=== PATIENT | male | born 2000 | race Caucasian/White ===

== ENCOUNTER 2021-01-10 09:22 | Outpatient (REF) | payer MEDICAID, SELFPAY | END 2021-01-10 09:23 | disposition home or self-care (01) | LOC: HO.LAB 09:22 | PROVIDERS: Visit Provider Internal Medicine | DX: Z20.822 Contact with and (suspected) exposure to COVID-19 (principal) | CPT/HCPCS: 36415; C9803; U0003; U0005 ==

== ENCOUNTER 2025-04-13 16:30 | Outpatient (REF) | payer MEDICAID, SELFPAY ==
--- OUTSIDE RECORDS SUMMARY | 2025-04-13 16:32 | XMS_ITS | Encounter Summary ---
Demographics Address [address] [place] [address] Work Phone Mobile Phone Preferred Language es Marital Status Single Church Affiliation Unknown Race Other Race Ethnic Group Unknown Author Organization [email or web address] Address [address] [facility] 7t [place] [address] Care Team Providers Care Cargo Service Agent Name Role Phone Kemi Hayden MD Primary Care Provider [phone] Reason for Visit * Reason Onset Date Comments CHART PREP 04/12/2025 Encounter Details Date Type Department Care Team (Late st Contact Info) Description 04/12/2025 Telephone [facility]IC[facility] [address] [place], [place] [phone] Kemi Hayden MD [address] [place], [place] [phone] CHART PREP Social History Tobacco Use Types Packs/Day Years Used Date Smoking Tobacco: Some Days Cigarettes Smokeless Tobacco: Never Depression Answer Date Recorded Patient Health Questionnaire-9 Score 0 04/13/2025 Patient Health Questionnaire-9 Score 0 04/13/2025 Last PHQ-9: Questionnaire Data Not on file 0 04/13/2025 Housing Stability Answer Date Recorded What is your housing situation today? I have letitia lopez 04/13/[address] you li ve. Do you have problems with any of the following? None of the above 04/13/2025 Food Insecurity Answer Date Recorded Within the past 12 months, y ou worried that your food would run out before you got money to buy more: Never True 04/13/2025 Within the past 12 months,th e food you bought just didn't last and you didn't have enough money to get more: Never True Transportation Answer Date Recorded In the past 12 months, has l ack of transportation kept you from medical appts, meetings, work or from getting things needed for daily living? No 04/13/2025 Utilities Answer Date Recorded In the past 12 months, has t he electric, gas, oil or water company threatened to shut off services in your home? No 04/13/2025 Depression Answer Date Recorded Patient Health Questionnaire-2 Score 0 04/13/2025 Internet Access Answer Date Recorded Internet Access Q1 Yes 04/13/2025 Internet Access Q2 Not on file 04/13/2025 Sex and Gender Information Value Date Recorded Sex Assigned at Male 09/23/2022 10:21 AM EDT Legal Sex Male 10:21 AM EDT Gender Identity Male 09/23/2022 10:21 AM EDT Sexual Orientation Straight 09/23/2022 10 :21 AM EDT documented as of this encounter Miscellaneous Notes * Telephone Encounter - Peggy Richardson MA - 04/12/2025 11:32 AM EDT Chart Prep Labs: not applicable Images: not applicable Referrals: not applicable Vaccines due: Covid and PCV20 Screenings: not applicable Overdue care gaps: SBIRT, SDOH, PHQ-9, YVONNE-7, Oral health screening, and Disability screen documented in this encounter Plan of Treatment Upcoming Encounters Date Type Department Care Team (Late st Contact Info) Description 04/20/2025 3:00 PM EDT Clinical Support [address] [address] 04/25/2025 2:00 PM EDT Office Visit [facility] [address] [place] [phone] Kemi Hayden MD [address] [place] [address] documented as of this encounter Visit Diagnoses Not on filedocumented in this encounter Care Teams Cargo Service Agent Relationship Specialty Start Date End Date Kemi Hayden MD [address] [place] [phone] PCP - General Family Medicine 05/21/22 documented as of this encounter
--- OUTSIDE RECORDS SUMMARY | 2025-04-13 16:32 | XMS_ITS | Encounter Summary ---
Author Organization [facility] Address [address] [facility] 7t [place] [address] Care Team Providers Care Fiction And Nonfiction Prose Writer Name Role Phone Kemi Hayden MD Primary Care Provider [phone] Encounter Details Date Type Department Care Team (Latest Contact Info) Description 08/29/2022 Abstract [facility] CONVERSIONS Dental, Provider, DDS Social History Tobacco Use Types Packs/Day Years Used Date Smoking Tobacco: Never Assessed Sex and Gender Information Value Date Recorded Sex Assigned at Male 09/23/2022 10:21 AM EDT Legal Sex Male 10:21 AM EDT Gender Identity Male 09/23/2022 10:21 AM EDT Sexual Orientation Straight 09/23/2022 10 :21 AM EDT documented as of this encounter Plan of Treatment Upcoming Encounters Date Type Department Care Team (Late st Contact Info) Description 04/20/2025 3:00 PM EDT Clinical Support [facility] MEDICINE [address] [place] [address] 04/25/2025 2:00 PM EDT Office Visit [facility] MEDICINE [address] [place] [address] Kemi Hayden MD [address] [place] [address] documented as of this encounter Visit Diagnoses Not on filedocumented in this encounter Care Teams Fiction And Nonfiction Prose Writer Relationship Specialty Start Date End Date Kemi Hayden MD [address] [place] [phone] PCP - General Family Medicine 05/21/22 documented as of this encounter
--- OUTSIDE RECORDS SUMMARY | 2025-04-13 16:32 | XMS_ITS | Encounter Summary ---
Author Organization [employer] Address [address] [facility] [address] 7t [place] [address] Care Team Providers Care Public Relations Coordinator Name Role Phone Kemi Hayden MD Primary Care Provider [phone] Encounter Details Date Type Department Care Team (Latest Contact Info) Description 04/13/2025 Travel Social History Tobacco Use Types Packs/Day Years Used Date Smoking Tobacco: Some Days Cigarettes Smokeless Tobacco: Never Depression Answer Date Recorded Patient Health Questionnaire-9 Score 0 04/13/2025 Patient Health Questionnaire-9 Score 0 04/13/2025 Last PHQ-9: Questionnaire Data Not on file 0 04/13/2025 Housing Stability Answer Date Recorded What is your housing situation today? I have letitia jessica 04/13/[address] you li [...] AM EDT documented as of this encounter Functional Status * Over the past 2 weeks, how often have you been bothered by any of the following problems? Question Answer Date of Assessment Author Patient Health Questionnaire -2 Score 0 04/13/2025 11:15 AM EDT Kiley Rene MA * Little interest or pleasure in doing things Answer Date of Assessment Author Not at all 04/13/2025 11:15 AM TIFFANIET Kiley Rene MA * Feeling down, depressed, or hopeless Answer Date of Assessment Author Not at all 04/13/2025 11:15 AM TIFFANIET Kiley Rene MA * Trouble falling or staying asleep, or sleeping too much Answer Date of Assessment Author Not at all 04/13/2025 11:15 AM Kiley Sherwood MA * Feeling tired or having little energy Answer Date of Assessment Author Not at all 04/13/2025 11:15 AM TIFFANIET Kiley Rene MA * Poor appetite or overeating Answer Date of Assessment Author Not at all 04/13/2025 11:15 AM Kiley Sherwood MA * Feeling bad about yourself - or that you are a failure or have let yourself or your family down Answer Date of Assessment Author Not at all 04/13/2025 11:15 AM Kiley Sherwood MA * Trouble concentrating on things, such as reading the newspaper or watching television Answer Date of Assessment Author Not at all 04/13/2025 11:15 AM Kiley Sherwood MA * Moving or speaking so slowly that other people could have noticed? Or the opposite - being so fidgety or restless that you have been moving around a lot more than usual. Answer Date of Assessment Author Not at all 04/13/2025 11:15 AM Kiley Sherwood MA * Thoughts that you would be better off or hurting yourself in some way Answer Date of Assessment Author Not at all 04/13/2025 11:15 AM EDT Kiley Rene MA * Patient Health Questionnaire-9 Score Answer Date of Assessment Author 0 04/13/2025 11:15 AM EDT Kiley Rene MA * Over the last 2 weeks, how often have you been bothered by any of the following problems? Question Answer Date of Assessment Author Feeling nervous, anxious, or on edge 2 04/13/2025 11:15 AM EDT Kiley Rene MA Not being able to stop or co ntrol worrying 1 04/13/2025 11:15 AM EDT Kiley Rene MA Worrying too much about diff erent things 0 04/13/2025 11:15 AM TIFFANIET Kiley Rene MA Trouble relaxing 1 04/13/2025 11:15 AM EDT Kiley Rene MA Being so restless that it is hard to sit still 0 04/13/2025 11:15 AM TIFFANIET Kiley Rene MA Becoming easily annoyed or irritable 3 04/13/2025 11:15 AM TIFFANIET Kiley Rene MA Feeling afraid as if somethi ng awful might happen 0 04/13/2025 11:15 AM Kiley Sherwood MA YVONNE-7 Total Score 7 04/13/2025 11:15 AM Kiley Sherwood MA documented as of this encounter Plan of Treatment Upcoming Encounters Date Type Department Care Team (Late st Contact Info) Description 04/20/2025 3:00 PM EDT Clinical Support [facility] MEDICINE [address] [place] [phone] 04/25/2025 2:00 PM EDT Office Visit [facility] MEDICINE [address] [place] [phone] Kemi Hayden MD [address] [place] [address] documented as of this encounter Visit Diagnoses Not on filedocumented in this encounter Additional Health Concerns Assessment Noted Time PHQ-9 Depression Total Score: 0 04/13/20 25 11:15 AM EDT documented as of this encounter Care Teams Public Relations Coordinator Relationship Specialty Start Date End Date Kemi Hayden MD [address] [place] [address] PCP - General Family Medicine 05/21/22 documented as of this encounter
--- OUTSIDE RECORDS SUMMARY | 2025-04-13 16:32 | XMS_ITS | Clinical Summary ---
Author Organization [employer] Address [address] [facility] 7t [place] [address] Care Team Providers Care Supervisor Final Name Role Phone Kemi Hayden MD Primary Care Provider Allergies No known active allergies Medications loratadine (Claritin) 10 MG tablet Take 1 tablet (10 mg) by mouth Once per day. 30 tablet 3 5 04/13/20 26 Active Alcohol Swabs (Alcohol Pads) 70 % padsIndications :Other specified diabetes mellitus with hyperglycemia, unspecified whether continuous churn buttermaker insulin use (CMS/HCC) Use 4 times a day 100 each 5 Active Continuous Glucose Content Producer (FreeStyle Nakia 2 [place]) deviceIndicatio ns:Other specified diabetes mellitus with hyperglycemia, unspecified whether continuous churn buttermaker insulin use (CMS/HCC) Use 4 times a day 1 each 5 Active Continuous Glucose Sensor (FreeStyle Nakia 2 Sensor) miscIndications :Other specified diabetes mellitus with hyperglycemia, unspecified whether halfway insulin use (CMS/HCC) Use 4 times a day . Replace sensor every 14 days. 2 each 5 Active glucose blood (FREESTYLE LITE) test stripIndication s:Other specified diabetes mellitus with hyperglycemia, unspecified whether continuous churn buttermaker insulin use (CMS/HCC) Use 4 times a day 60 each 5 Active glucose blood (FreeStyle Precision Victor Manuel Test) test stripIndication s:Other specified diabetes mellitus with hyperglycemia, unspecified whether continuous churn buttermaker insulin use (CMS/HCC) Use 4 times a day 100 each 12 5 Active Blood Glucose Monitoring Suppl (FreeStyle Regina Lite) w/Device kitIndications: Other specified diabetes mellitus with hyperglycemia, unspecified whether continuous churn buttermaker insulin use (CMS/HCC) Use 4 times a day 1 kit 5 Active FreeStyle lancetsIndicati ons:Other specified diabetes mellitus with hyperglycemia, unspecified whether continuous churn buttermaker insulin use (CMS/HCC) 1 each by Other route 4 times daily. Use bid, dx type 2 diabetes 60 each 2 5 Active insulin glargine (Lantus SoloStar) 100 UNIT/ML pen Inject 10 Units under the skin at bedtime. 3 mL 2 5 04/13/20 26 Active Insulin Pen Needle (pen needle 04/08 ) 31G X 8 mm [facility] Use as instructed 100 each 12 5 04/13/20 26 Active insulin lispro (HumaLOG) 100 UNIT/ML injection Inject 5 Units under the skin with breakfast, with lunch, and with evening meal. 1 each 2 5 Active amoxicillin (Amoxil) 500 MG capsule Take 1 tab po bid for 10 days 20 capsule 3 04/13/20 25 Discontin ued(Other ) insulin lispro (HumaLOG) 100 UNIT/ML injectionIndica tions:Other specified diabetes mellitus with hyperglycemia, unspecified whether halfway insulin use (CMS/HCC) Inject 5 Units under the skin with breakfast, with lunch, and with evening meal. 1 each 2 5 04/13/20 25 Discontin ued(Other ) insulin glargine (Lantus) 100 UNIT/ML injectionIndica tions:Other specified diabetes mellitus with hyperglycemia, unspecified whether continuous churn buttermaker insulin use (CMS/HCC) Inject 10 Units under the skin at bedtime. 10 mL 2 5 04/13/20 25 Discontin ued(Other ) Hospital, Clinic, or Other Facility Administered Medication Ordered Dose Route Frequency Start Date End Date Status Insulin Lispro solution 7 UnitsIndications:Other specified diabetes mellitus with hyperglycemia, unspecified whether halfway insulin use (CMS/HCC) 7 Units IJ Once 04/13/2025 5 Ended Active Problems No known active problems Encounters Date Type Department Care Team Description 04/13/2025 11:15 AM EDT Office Visit [address] [phone] Sherly Boyer MD Increased urinary frequency (Primary Dx); Foamy urine; Other specified diabetes mellitus with hyperglycemia, unspecified whether continuous churn buttermaker insulin use (CMS/HCC); Newly diagnosed type 1 diabetes mellitus (CMS/HCC); Diabetes mellitus, new onset ([facility]/HCC) 04/13/2025 Travel 04/12/2025 Telephone [facility] MEDICINE [address] [place], [place] [phone] Kemi Hayden MD CHART PREP 04/11/2025 Telephone [facility] MEDICINE [address] [place], [place] [phone] Kemi Hayden MD Nurse Triage 02/04/2025 Population Health Risk Score [facility] () Department [address] [place] [place] [phone] Provider, Population Health Generic from Last 3 Months Social History Tobacco Use Types Packs/Day Years Used Date Smoking Tobacco: Some Days Cigarettes Smokeless Tobacco: Never Tobacco Cessation:Ready to Q uit: Not Asked; Counseling Given: Not Answered Depression Answer Date Recorded Patient Health Questionnaire-9 [...] Orientation Straight 09/23/2022 10 :21 AM EDT Last Filed Vital Signs Vital Sign Reading Time Taken Comments Blood Pressure 117/73 04/13/2025 11:12 AM EDT Pulse 68 04/13/2025 11:12 AM EDT Temperature 35.8 ??C (96.4 ??F) 04/13/2025 11:12 AM E DT Respiratory Rate 20 04/13/2025 11:12 AM EDT Oxygen Saturation 97% 04/13/2025 11:12 AM EDT Inhaled Oxygen Concentration - - Weight 70.4 kg (155 lb 3.2 oz) 04/13/2025 11:12 AM EDT Height 172.7 cm (5' 8 ) 04/13/2025 11:12 AM EDT Body Mass Index 23.6 04/13/2025 11:12 AM EDT Plan of Treatment Upcoming Encounters Date Type Department Care Team (Late st Contact Info) Description 04/20/2025 3:00 PM EDT Clinical Support [facility] MEDICINE [address] [place] [phone] 04/25/2025 2:00 PM EDT Office Visit [facility] MEDICINE [address] [place] [phone] Kemi Hayden MD [address] [place] [phone] Health Maintenance Due Date Last Done Comments HIV Screening 1999 Lipid Panel 1999 Diabetes: Foot Exam 2009 Eye Exam 2009 Alcohol/Substance Use Screening 2011 Family Planning (PISQ) 2014 Hepatitis C Screening 2017 Diabetes: Urine Protein Screening 2018 Pneumococcal Vaccine: Pediatrics (0 to 5 Years) and At-Risk Patients (6 to 49) Years) (1 of 2 - PCV) 2018 DTaP/Tdap/Td Vaccines (7 - Td or Tdap) 03/25/2021 03/25/2011, 06/14/2004, 02/08/2003, Additional history exists COVID-19 Vaccine ( season) 2024 05/08/2022, 07/10/2021, 06/19/2021 Influenza Vaccine (#1) 2024 , 08/24/2018, 08/25/2017, Additional history exists Diabetes: Hemoglobin A1C 07/14/2025 04/13/2025 Depression Screening 04/13/2026 04/13/2025, 04/13/20 25 Disability Screening 04/13/2026 04/13/2025 SDOH Screening 04/13/2026 04/13/2025 Tobacco Screening 04/13/2026 04/13/2025 Zoster Vaccines (1 of 2) 2049 RSV Patients and Patients Aged 60 years or older (1 - 1-dose 75+ series) 2074 Hepatitis B Vaccines Completed 06/24/2000, 04/29/2000, 02/28/2000 HIB Vaccines Completed 06/04/2001, 0811/1999, 04/29/2000, Additional history exists IPV Vaccines Completed 06/14/2004, 05/24, 06/24/2000, Additional history exists HPV Vaccines Completed 07/27/2015, 06/24, 04/23/2013 Hepatitis A Vaccines Completed 08/23/2016, 07/27/20 15 Meningococcal Vaccine Completed 08/23/2016, 011 Meningococcal B Vaccine Aged Out No l onger eligible based on patient's age to complete this topic RSV under 20 months Aged Out No longe r eligible based on patient's age to complete this topic Rotavirus Vaccines Aged Out No longer eligible based on patient's age to complete this topic Procedures Procedure Name Priority Date/Time Associated Diagnosis Comments POCT GLUCOSE Routine 04/13/2025 2:25 PM EDT Diabetes mellitus, new onset (CMS/HCC) POCT GLUCOSE Routine 04/13/2025 2:22 PM EDT Diabetes mellitus, new onset (CMS/HCC) POCT GLYCATED HEMOGLOBIN, TOTAL Routine 04/13/2025 12:05 PM EDT Increased urinary frequency POCT GLUCOSE Routine 04/13/2025 12:05 PM EDT Increased urinary frequency POCT URINALYSIS DIPSTICK Routine 04/13/2025 12:02 PM EDT Increased urinary frequency from Last 3 Months Results * (ABNORMAL) POCT Glucose (04/13/2025 2:25 PM EDT) Only the most recent of3 resultswithin the time period is included. Glucose Blood, POC 267(A) 60 - 200 mg/dL QC Media Lot # [id number] Lot# Expiration Date ,142,02 5 Blood Capillary blood specimen / Unknown 04/13/2025 2:25 PM EDT Sherly Oshea MD POINT OF CARE MARINE T ENTER/EDIT ORDERABLES Final Result * (ABNORMAL) POCT HGB A1C (04/13/2025 12:05 PM EDT) Hemoglobin A1C 14.6(A) 4.0 - 6.0 % QC Media Lot # [id number] Lot# Expiration Date Blood 04/13/2025 12:0 5 PM EDT Sherly Oshea MD POINT OF CARE MARINE T ENTER/EDIT ORDERABLES Final Result * POCT Urinalysis (04/13/2025 12:02 PM EDT) Color, UA Yellow Clarity, UA Clear Glucose, UA 3+ 500+++ Bilirubin, UA Negative Ketones, UA Negative Spec Grav, UA 1.015 Blood, UA Negative Negative, None Detected pH, UA 6.0 Protein, UA Negative Urobilinogen, UA 0.2 Leukocytes, UA Negative Negative, Rare, Trace Nitrite, UA Negative Negative, None Detected QC Media Lot # [id number] Lot# Expiration Date [id number] Urine 04/13/2025 12:0 2 PM EDT Sherly Oshea MD POINT OF CARE MARINE T ENTER/EDIT ORDERABLES Final Result from Last 3 Months Insurance C3 Care Teams Supervisor Final Relationship Specialty Start Date End Date Kemi Hayden MD [address] [place] [address] PCP - General Family Medicine 05/21/22
--- OUTSIDE RECORDS SUMMARY | 2025-04-13 16:32 | XMS_ITS | Encounter Summary ---
Demographics Address [address] [place] [address] Work Phone Mobile Phone Preferred Language es Marital Status Single Voodoo Affiliation Unknown Race Other Race Ethnic Group Unknown Author Organization [employer] Address [address] [facility] 7t [place] [address] Care Team Providers Care Nursing Surgical Services Director Name Role Phone Kemi Hayden MD Primary Care Provider [phone] Reason for Visit * Reason Onset Date Comments Nurse Triage 04/11/2025 Encounter Details Date Type Department Care Team (Late st Contact Info) Description 04/11/2025 Telephone [facility] MEDICINE [address] [place], [place] [phone] Kemi Hayden MD [address] [place], [place] [phone] Nurse Triage Social History Tobacco Use Types Packs/Day Years Used Date Smoking Tobacco: Some Days Cigarettes Smokeless Tobacco: Never Sex and Gender Information Value Date Recorded Sex Assigned at Male 09/23/2022 10:21 AM EDT Legal Sex Male 10:21 AM EDT Gender Identity Male 09/23/2022 10:21 AM EDT Sexual Orientation Straight 09/23/2022 10 :21 AM EDT documented as of this encounter Miscellaneous Notes * Telephone Encounter - Armida Pro RN - 04/11/2025 3:56 PM EDT called pt to triage, spoke to pt. through [email or web address]. pt states several weeks duration of intermittent rash(bumps under the skin), itching, on chest and arms. pt also states wants to have labs done as he has familial DM and is having some symptoms. pt states urinary frequency, hunger duringthe night, thirst, and wants testing to rule out DM. given appt with green team provider Friday at 11:15 for exam. advised home care: rest, fluids, OTC anti itch cream, avoid getting over heated or direct sun exposure for now, avoid scented bath products, and call back as needed. pt understands and agrees with plan. insurance verified. Protocol Used: Rash or Redness - Widespread (Adult) Protocol-Based Disposition: See in Office or Video Visit Today Video visit offer not recorded Positive Triage Question: * Patient wants to be seen * All higher-acuity triage questions were negative Care Advice Discussed: * Reassurance and Education - Widespread Rash * Antihistamine Medicines for Moderate to Severe Itching * Antihistamine Medicines - Extra Notes and Warnings * Reducing the Itch - Oatmeal (Aveeno) Bath * Hydrocortisone Cream for Itching * Reasons To Call Back - Rash becomes purple or blood-colored or blister-like - Fever occurs or severe itching - You become worse * Telephone Encounter - Areli Pederson - 04/11/2025 3:15 PM EDT Symptoms: Rash or Redness - Widespread, Urine Symptoms Outcome: Schedule a same-day appointment or talk to a nurse or provider today Reason: Caller denied all higher acuity questions The caller accepted this outcome. Contact pt Mom at [phone] Pt [phone] documented in this encounter Plan of Treatment Upcoming Encounters Date Type Department Care Team (Late st Contact Info) Description 04/20/2025 3:00 PM EDT Clinical Support [address] [address] 04/25/2025 2:00 PM EDT Office Visit [address] [address] Kemi Hayden MD [address] [place] [phone] documented as of this encounter Visit Diagnoses Not on filedocumented in this encounter Care Teams Nursing Surgical Services Director Relationship Specialty Start Date End Date Kemi Hayden MD [address] [place] [phone] PCP - General Family Medicine 05/21/22 documented as of this encounter
--- OUTSIDE RECORDS SUMMARY | 2025-04-13 16:32 | XMS_ITS | Encounter Summary ---
Author Organization [employer] Address [address] [place] [address] 7 [place] [address] Care Team Providers Care Assembler Wire Mesh Gate Name Role Phone Kemi Hayden MD Primary Care Provider [phone] Reason for Referral * Consultation (Routine) - Authorized Specialty Diagnoses / Procedures Referred By Kristie t Referred To Contact Nutrition Diagnoses Other specified diabetes mellitus with hyperglycemia, unspecified whether termite exterminator insulin use (CMS/HCC) Sherly Boyer MD [address] [place] [address] Phone: tel: fax: Referral ID Status Reason Start Date Expiration Date Visits Requested Visits Authorized [id number] Authorized Specialty Services Required 04/13/2025 04/13/2026 1 1 Encounter Details Date Type Department Care Team (Late st Contact Info) Description 04/13/2025 11:15 AM EDT Office Visit [facility] MEDICINE [address] [place], [place] [phone] Sherly Boyer MD [address] [place] [address] [phone] Increased urinary frequency (Primary Dx); Foamy urine; Other specified diabetes mellitus with hyperglycemia, unspecified whether termite exterminator insulin use (CMS/HCC); Newly diagnosed type 1 diabetes mellitus (CMS/HCC); Diabetes mellitus, new onset (CMS/HCC) Social History Tobacco Use Types Packs/Day Years [...] AM EDT documented as of this encounter Last Filed Vital Signs Vital Sign Reading [...] Mass Index 23.6 04/13/2025 11:12 AM EDT documented in this encounter Functional Status * Over the [...] 11:15 AM EDT Kiley Rene MA * Feeling down, depressed, [...] 04/13/2025 11:15 AM Kiley Sherwood MA * Poor appetite or overeating Answer [...] Author Not at all 04/13/2025 11:15 AM EDKiley Szymanski MA * Patient Health Questionnaire-9 Score Answer Date of Assessment Author 0 04/13/2025 11:15 AM Kiley Sherwood MA * Over the last 2 weeks, [...] diff erent things 0 04/13/2025 11:15 AM Kiley Sherwood MA Trouble relaxing 1 04/13/2025 11:15 AM TIFFANIET Kiley Rene MA Being so restless that it is hard to sit still 0 04/13/2025 11:15 AM TIFFANIET Kiley Rene MA Becoming easily annoyed or irritable 3 04/13/2025 11:15 AM EDT Kiley Rene MA Feeling afraid as if somethi ng awful might happen 0 04/13/2025 11:15 AM Kiley Sherwood MA YVONNE-7 Total Score 7 04/13/2025 11:15 AM Kiley Sherwood MA documented as of this encounter Plan of Treatment Upcoming Encounters Date Type Department Care Team (Late st Contact Info) Description 04/20/2025 3:00 PM EDT Clinical Support [facility] MEDICINE [address] [place] [phone] 04/25/2025 2:00 PM EDT Office Visit [facility] MEDICINE [address] [place] [phone] Kemi Hayden MD [address] [place] [phone] Scheduled Orders Name Type Priority Associated Diagnoses Orde r Schedule Urinalysis, Complete, with Reflex to Culture Lab Routine Foamy urine Expected: 04/13/2025 (Approximate), Expires: 04/13/2026 Albumin, Random Urine W/Creatinine Lab Routine Diabetes mellitus, new onset (CMS/HCC) Expected: 04/13/2025 (Approximate), Expires: 04/13/2026 Comprehensive Metabolic Panel Lab Routine Diabetes mellitus, new onset (CMS/HCC) Expected: 04/13/2025 (Approximate), Expires: 04/13/2026 Hemoglobin A1c Lab Routine Diabetes mellitus, new onset (CMS/HCC) Expected: 04/13/2025 (Approximate), Expires: 04/13/2026 Lipid Panel, Standard Lab Routine Diabetes mellitus, new onset (CMS/HCC) Expected: 04/13/2025 (Approximate), Expires: 04/13/2026 TSH with Reflex to Free T4 Lab Routine Diabetes mellitus, new onset (CMS/HCC) Expected: 04/13/2025 (Approximate), Expires: 04/13/2026 CBC Lab Routine Diabetes mellitus, new onset (CMS/HCC) Expected: 04/13/2025 (Approximate), Expires: 04/13/2026 Zinc Transporter 8 (ZnT8) Antibody Lab Routine Diabetes mellitus, new onset (CMS/HCC) Expected: 04/13/2025 (Approximate), Expires: 04/13/2026 IA-2 Antibody Lab Routine Diabetes mellitus, new onset (CMS/HCC) Expected: 04/13/2025 (Approximate), Expires: 04/13/2026 Insulin Lab Routine Diabetes mellitus, new onset (CMS/HCC) Expected: 04/13/2025 (Approximate), Expires: 04/13/2026 Glutamic Acid Decarboxylase 65 Antibody Lab Routine Diabetes mellitus, new onset (CMS/HCC) Expected: 04/13/2025 (Approximate), Expires: 04/13/2026 Scheduled Referrals Name Type Priority Associated Diagnoses Orde r Schedule Referral to Nutrition Services Outpatient Referral Routine Other specified diabetes mellitus with hyperglycemia, unspecified whether intermediate insulin use (CMS/HCC) Expected: 04/13/2025 (Approximate), Expires: 04/13/2026 documented as of this encounter Procedures Procedure Name Priority Date/Time Associated Diagnosis [...] 04/13/2025 12:02 PM EDT Increased urinary frequency documented in this encounter Results * (ABNORMAL) POCT Glucose (04/13/2025 2:25 PM EDT) Glucose Blood, POC 267(A) 60 - 200 mg/dL QC Media Lot # [id number] Lot# Expiration Date [id number] 5 Blood Capillary blood specimen / Unknown 04/13/2025 2:25 PM EDT Sherly Oshea MD POINT OF CARE MARINE T ENTER/EDIT ORDERABLES Final Result * (ABNORMAL) POCT Glucose (04/13/2025 2:22 PM EDT) [facility] Glucose Blood, POC 355(A) 60 - 200 mg/dL QC Media Lot # [id number] Lot# Expiration Date ,014,205 Blood Capillary blood specimen / Unknown 04/13/2025 2:22 PM EDT Sherly Oshea MD POINT OF CARE MARINE T ENTER/EDIT ORDERABLES Final Result * (ABNORMAL) POCT HGB A1C (04/13/2025 12:05 PM EDT) Hemoglobin A1C 14.6(A) 4.0 - 6.0 % QC Media Lot # [id number] Lot# Expiration Date ,,027 Blood 04/13/2025 12:0 5 PM EDT Sherly Oshea MD POINT OF CARE MARINE T ENTER/EDIT ORDERABLES Final Result * (ABNORMAL) POCT Glucose (04/13/2025 12:05 PM EDT) Glucose Blood, POC 409(A) 60 - 200 mg/dL QC Media Lot # [id number] Lot# Expiration Date ,653,025 Blood Capillary blood specimen / Unknown 04/13/2025 12:05 PM EDT Sherly Oshea MD POINT OF [...] CARE MARINE T ENTER/EDIT ORDERABLES Final Result documented in this encounter Visit Diagnoses Diagnosis Increased urinary frequency- Primary Urinary frequency Foamy urine Other nonspecific finding on examination of urine Other specified diabetes mellitus with hyperglycemia, unspecified whether intermediate insulin use (CMS/[facility]) Newly diagnosed type 1 diabetes mellitus ([facility]/HCC) Diabetes mellitus, new onset ([facility]) documented in this encounter Administered Medications Inactive Administered Medications - up to 3 most recent administrations Medication Order MAR Action Action Date Dose Rate Site Insulin Lispro solution 7 Units 7 Units, Injection, Once, On Fri04/13/25 at 1215, For 1 doseIndications:Other specified diabetes mellitus with hyperglycemia, unspecified whether intermediate insulin use (CMS/[facility]) Given 04/13/2025 12:24 PM EDT 7 Units documented in this encounter Additional Health Concerns Assessment Noted Time PHQ-9 Depression Total Score: 0 04/13/20 25 11:15 AM EDT documented as of this encounter Care Teams Assembler Wire Mesh Gate Relationship Specialty Start Date End Date Kemi Hayden MD [address] [place] [phone] PCP - General Family Medicine 05/21/22 documented as of this encounter
[2025-04-13 16:38] LABS: Appearance Urine Clear; Color Urine Yellow; Glucose Urine UA >=1000 mg/dL (Negative); Leukocyte Esterase Urine Negative (Negative); Nitrite Urine Negative (Negative); Specific Gravity - Urine >= 1.030 (1.005-1.025); UMIC TRIGGER UACC YES; Urine Blood Negative (Negative); Urine Ketones Negative (Negative); Urine Protein Negative (Neg-Trace)
[2025-04-13 16:40] LABS: Bacteria Urine None Seen (None Seen); Hyaline Casts Urine 0-2 /LPF (0-2); RBC Urine 0-2 /HPF (0-2); Squamous Epithelial Cell Urine 0-2 /HPF (0-2); WBC Urine 0-5 /HPF (0-5)
== END 2025-04-13 16:31 | disposition home or self-care (01) ==
LOC: HO.HHCLNP 16:30
PROVIDERS: Visit Provider Student in an Organized Health Care Education/Training Program
DX: R82.998 Other abnormal findings in urine (principal)
CPT/HCPCS: 81001

== ENCOUNTER 2025-04-14 09:01 | Outpatient (REF) | payer MEDICAID, SELFPAY ==
--- OUTSIDE RECORDS SUMMARY | 2025-04-14 09:16 | XMS_ITS | Clinical Summary ---
Author Organization [employer] Address [address] [facility] 7t [place] [address] Care Team Providers Care Rope Making Machine Operator Name Role Phone Kemi Hayden MD Primary Care Provider [phone] Allergies No known active allergies Medications loratadine (Claritin) 10 MG tablet Take 1 tablet (10 mg) by mouth Once per day. 30 tablet 3 5 04/13/20 26 Active Alcohol Swabs (Alcohol Pads) 70 % padsIndications :Other specified diabetes mellitus with hyperglycemia, unspecified whether predatory animal exterminator insulin use (CMS/HCC) Use 4 times a day 100 each 5 Active Continuous Glucose Plastic Welder (FreeStyle Nakia 2 Wallback) deviceIndicatio ns:Other specified diabetes mellitus with hyperglycemia, unspecified whether predatory animal exterminator insulin use (CMS/HCC) Use 4 times a day 1 each 5 Active Continuous Glucose Sensor (FreeStyle Nakia 2 Sensor) miscIndications :Other specified diabetes mellitus with hyperglycemia, unspecified whether senior care insulin use (CMS/HCC) Use 4 times a day . Replace sensor every 14 days. 2 each 5 Active glucose blood (FREESTYLE LITE) test stripIndication s:Other specified diabetes mellitus with hyperglycemia, unspecified whether predatory animal exterminator insulin use (CMS/HCC) Use 4 times a day 60 each 5 Active glucose blood (FreeStyle Precision Victor Manuel Test) test stripIndication s:Other specified diabetes mellitus with hyperglycemia, unspecified whether predatory animal exterminator insulin use (CMS/HCC) Use 4 times a day 100 each 12 5 Active Blood Glucose Monitoring Suppl (FreeStyle Barclay Lite) w/Device kitIndications: Other specified diabetes mellitus with hyperglycemia, unspecified whether predatory animal exterminator insulin use (CMS/HCC) Use 4 times a day 1 kit 5 Active FreeStyle lancetsIndicati ons:Other specified diabetes mellitus with hyperglycemia, unspecified whether predatory animal exterminator insulin use (CMS/HCC) 1 each by Other route 4 times daily. Use bid, dx type 2 diabetes 60 each 2 5 Active insulin glargine (Lantus SoloStar) 100 UNIT/ML pen Inject 10 Units under the skin at bedtime. 3 mL 2 5 04/13/20 26 Active Insulin Pen Needle (pen needle 04/08 ) 31G X 8 mm [facility] Use as instructed 100 each 12 5 [...] specified diabetes mellitus with hyperglycemia, unspecified whether senior care insulin use (CMS/HCC) Inject 5 Units under the skin with breakfast, with lunch, and with evening meal. 1 each 2 5 04/13/20 25 Discontin ued(Other ) insulin glargine (Lantus) 100 UNIT/ML injectionIndica tions:Other specified diabetes mellitus with hyperglycemia, unspecified whether predatory animal exterminator insulin use (CMS/[facility]) Inject 10 Units under the skin at bedtime. 10 mL 2 5 04/13/20 25 Discontin ued(Other ) Hospital, Clinic, or Other Facility Administered Medication Ordered Dose Route Frequency Start Date End Date Status Insulin Lispro solution 7 UnitsIndications:Other specified diabetes mellitus with hyperglycemia, unspecified whether senior care insulin use (CMS/HCC) 7 Units IJ Once 04/13/2025 5 Ended Active Problems Problem Noted Date Diagnosed Date Urticarial rash 04/14/2025 Diabetes mellitus, new onset 04/14/2025 Encounters Date Type Department Care Team Description 04/13/2025 11:15 AM EDT Office Visit [facility] MEDICINE [address] [place] [phone] Sherly Boyer MD Increased urinary frequency (Primary Dx); Foamy urine; Other specified diabetes mellitus with hyperglycemia, unspecified whether senior care insulin use (CMS/HCC); Newly diagnosed type 1 diabetes mellitus ([facility]/HCC); Diabetes mellitus, new onset ([facility]); Urticarial rash 04/13/2025 Travel 04/12/2025 Telephone [facility] MEDICINE [address] [place] [address] Kemi Hayden MD CHART PREP 04/11/2025 Telephone [facility] MEDICINE [address] [place] [address] Kemi Hayden MD Nurse Triage 02/04/2025 Population Health Risk Score [facility] () [address] [phone] Provider, Population Health Generic from Last [...] is your housing situation today? I have letitiabernice lopez 04/13/[address] you [...] 3:00 PM EDT Clinical Support [facility] MEDICINE [address] [place] [phone] 04/25/2025 2:00 PM EDT Office Visit [address] [address] Kemi Hayden MD [address] [place] [address] Health Maintenance Due Date Last Done Comments [...] 02/08/2003, Additional history exists COVID-19 Vaccine ( - season) 2024 05/08/2022, 07/10/2021, 06/19/2021 Influenza Vaccine [...] 06/24/2000, 04/29/2000, 02/28/2000 HIB Vaccines Completed 06/04/2001, 11/1999, 04/29/2000, Additional history exists IPV Vaccines Completed [...] 04/13/2025 12:02 PM EDT Increased urinary frequency URINALYSIS, COMPLETE, WITH REFLEX TO CULTURE Routine 04/13/2025 11:50 AM EDT Foamy urine from Last 3 Months Results * (ABNORMAL) [...] Media Lot # [id number] Lot# Expiration Date , Blood 04/13/2025 12:0 5 PM EDT Sherly [...] Media Lot # [id number] Lot# Expiration Date Urine 04/13/2025 12:0 2 PM EDT Sherly Oshea MD POINT OF CARE MARINE T ENTER/EDIT ORDERABLES Final Result * (ABNORMAL) Urinalysis, Complete, with Reflex to Culture (04/13/2025 11:50 AM EDT) Color Urine Yellow [facility] Appearance Urine Clear [facility] PH 6.0 5.0 - 9.0 [facility] Glucose Urine UA >=1000(A) Negative mg/dL [facility] Urine Blood Negative Negative [facility] Specific Surveyor - Urine >=1.030(H) 1.005 - 1.025 [facility] Urine Protein Negative Neg-Trace mg/dL [facility] Urine Ketones Negative Negative mg/dL [facility] Nitrite Urine Negative Negative [facility] Leukocyte Esterase Urine Negative Negative [facility] RBC Urine 0-2 0 - 2 /HPF [facility] Urine WBC 0-5 0 - 5 /HPF [facility] Urine Squamous Epithelial Cell 0-2 0 - 2 /HPF [facility] Urine Bacteria None Seen None Seen [facility] Hyaline Casts, Urine 0-2 0 - 2 /LPF [facility] Urine 04/13/2025 11:5 0 AM EDT 04/13/2025 4:31 PM EDT Narrative [facility] - 04/13/2025 4:43 PM EDT Urine, Clean Catch us Sherly Oshea MD LAB URINE ORDERAB LES Final Result [facility] [address] [place] [phone] from Last 3 Months Insurance C3 Care Teams Rope Making Machine Operator Relationship Specialty Start Date End Date Kemi Hayden MD [address] [place] [phone] PCP - General Family Medicine 05/21/22
--- OUTSIDE RECORDS SUMMARY | 2025-04-14 09:16 | XMS_ITS | Encounter Summary ---
Demographics Address [address] [place] [address] Work Phone Mobile Phone Preferred Language es Marital Status Single Mormonism Affiliation Unknown Race Other Race Ethnic Group Unknown Author Organization [employer] Address [address] [facility] 7t [place] [address] Care Team Providers Care Donkey Ride Operator Name Role Phone Kemi Hayden MD Primary Care Provider [phone] Reason for Visit * Reason Onset Date Comments CHART PREP 04/12/2025 Encounter Details Date Type Department Care Team (Late st Contact Info) Description 04/12/2025 Telephone [facility] MEDICINE [address] [place], [place] [phone] Kemi Hayden MD [address] [place], [place] [phone] CHART PREP Social History Tobacco Use Types [...] Description 04/20/2025 3:00 PM EDT Clinical Support [address] [address] 04/25/2025 2:00 PM EDT Office Visit [facility] MEDICINE [address] [place] [phone] Kemi Hayden MD [address] [place] [phone] documented as of this encounter Visit Diagnoses Not on filedocumented in this encounter Care Teams Donkey Ride Operator Relationship Specialty Start Date End Date Kemi Hayden MD [address] [place] [phone] PCP - General Family Medicine 05/21/22 documented as of this encounter
--- OUTSIDE RECORDS SUMMARY | 2025-04-14 09:16 | XMS_ITS | Encounter Summary ---
Author Organization [employer] Address [address] [facility] 7 [place] [address] Care Team Providers Care Exhibit Artist Name Role Phone Kemi Hayden MD Primary Care Provider [phone] Reason for Referral * Consultation (Routine) - Authorized Specialty Diagnoses / Procedures Referred By Kristie t Referred To Contact Nutrition Diagnoses Other specified diabetes mellitus with hyperglycemia, unspecified whether technician terminal and repeater insulin use (CMS/HCC) Sherly Boyer MD [address] [place] [address] Phone: tel: fax: Referral ID Status Reason Start Date Expiration Date Visits Requested Visits Authorized [id number] Authorized Specialty Services Required 04/13/2025 04/13/2026 1 1 Encounter Details Date Type Department Care Team (Late st Contact Info) Description 04/13/2025 11:15 AM EDT Office Visit [facility] MEDICINE [address] [place], [place] [phone] Sherly Boyer MD [address] [place] [address] [phone] Increased urinary frequency (Primary Dx); Foamy urine; Other specified diabetes mellitus with hyperglycemia, unspecified whether technician terminal and repeater insulin use (CMS/HCC); Newly diagnosed type 1 diabetes mellitus (CMS/HCC); Diabetes mellitus, new onset (CMS/HCC); Urticarial rash Social History Tobacco Use Types Packs/Day Years [...] Questionnaire -2 Score 0 04/13/2025 11:15 AM TIFFANIET Kiley Rene MA * Little interest or [...] 11:15 AM EDT Kiley Rene MA * Poor appetite or [...] of Assessment Author 0 04/13/2025 11:15 AM TIFFANIET Kiley Rene MA * Over the last [...] awful might happen 0 04/13/2025 11:15 AM TIFFANIET Kiley eRne MA YVONNE-7 Total Score 7 04/13/2025 11:15 AM Kiley Sherwood MA documented as of this encounter Plan of Treatment Upcoming Encounters Date Type Department Care Team (Late st Contact Info) Description 04/20/2025 3:00 PM EDT Clinical Support [facility] MEDICINE [address] [place] [phone] 04/25/2025 2:00 PM EDT Office Visit [facility] MEDICINE [address] [place] [address] Kemi Hayden MD [address] [place] [phone] Scheduled Orders Name Type Priority Associated Diagnoses Orde r Schedule Albumin, Random Urine W/Creatinine Lab Routine Diabetes [...] specified diabetes mellitus with hyperglycemia, unspecified whether fpc insulin use (CMS/HCC) Expected: 04/13/2025 (Approximate), Expires: [...] Routine 04/13/2025 11:50 AM EDT Foamy urine documented in this encounter Results * (ABNORMAL) POCT Glucose (04/13/2025 2:25 PM EDT) Glucose Blood, POC 267(A) 60 - 200 mg/dL QC Media Lot # [id number] Lot# Expiration Date ,142,02 5 Blood Capillary blood specimen / Unknown 04/13/2025 2:25 PM EDT Sherly Oshea MD POINT OF CARE MARINE T ENTER/EDIT ORDERABLES Final Result * (ABNORMAL) POCT Glucose (04/13/2025 2:22 PM EDT) [facility] Glucose Blood, POC 355(A) 60 - 200 mg/dL QC Media Lot # [id number] Lot# Expiration Date ,014,205 Blood Capillary blood specimen / Unknown 04/13/2025 2:22 PM EDT Sherly Oshea MD POINT OF CARE MARINE T ENTER/EDIT ORDERABLES Final Result * (ABNORMAL) POCT HGB A1C (04/13/2025 12:05 PM EDT) Pathologist [facility] Hemoglobin A1C 14.6(A) 4.0 - 6.0 % QC Media Lot # [id number] Lot# Expiration Date ,027 Blood 04/13/2025 12:0 5 PM EDT Sherly Oshea MD POINT OF CARE MARINE T ENTER/EDIT ORDERABLES Final Result * (ABNORMAL) POCT Glucose (04/13/2025 12:05 PM EDT) Glucose Blood, POC 409(A) 60 - 200 mg/dL QC Media Lot # [id number] Lot# Expiration Date ,025 Blood Capillary blood specimen / Unknown 04/13/2025 [...] (04/13/2025 11:50 AM EDT) Color Urine Yellow [facility] Appearance Urine Clear [facility] PH 6.0 5.0 - 9.0 [facility] Glucose Urine UA >=1000(A) Negative mg/dL [facility] Urine Blood Negative Negative [facility] Specific [place] - Urine >=1.030(H) 1.005 - 1.025 [facility] Urine Protein Negative Neg-Trace mg/dL [facility] Urine Ketones Negative Negative mg/dL [facility] Nitrite Urine Negative Negative [facility] Leukocyte Esterase Urine Negative Negative [facility] RBC Urine 0-2 0 - 2 /HPF [facility] Urine WBC 0-5 0 - 5 /HPF [facility] Urine Squamous Epithelial Cell 0-2 0 - 2 /HPF [facility] Urine Bacteria None Seen None Seen [facility] Hyaline Casts, Urine 0-2 0 - 2 /LPF [facility] Urine 04/13/2025 11:5 0 AM EDT 04/13/2025 4:31 PM EDT Narrative [facility] - 04/13/2025 4:43 PM EDT Urine, Clean Catch Sherly Oshea MD LAB URINE ORDERAB LES Final Result [facility] [address] [place] [phone] documented in this encounter Visit Diagnoses Diagnosis Increased urinary frequency- Primary Urinary frequency Foamy urine Other nonspecific finding on examination of urine Other specified diabetes mellitus with hyperglycemia, unspecified whether technician terminal and repeater insulin use ([facility]) Newly diagnosed type 1 diabetes mellitus ([facility]) Diabetes mellitus, new onset ([facility]) Urticarial rash Unspecified urticaria documented in this encounter Administered Medications Inactive Administered Medications - up to 3 most recent administrations Medication Order MAR Action Action Date Dose Rate Site Insulin Lispro solution 7 Units 7 Units, Injection, Once, On Fri04/13/25 at 1215, For 1 doseIndications:Other specified diabetes mellitus with hyperglycemia, unspecified whether technician terminal and repeater insulin use ([facility]) Given 04/13/2025 12:24 PM EDT 7 Units documented in this encounter Additional Health Concerns Assessment Noted Time PHQ-9 Depression Total Score: 0 04/13/20 11:15 AM EDT documented as of this encounter Care Teams Exhibit Artist Relationship Specialty Start Date End Date Kemi Hayden MD [address] [place] [phone] PCP - General Family Medicine 05/21/22 documented as of this encounter
--- OUTSIDE RECORDS SUMMARY | 2025-04-14 09:16 | XMS_ITS | Encounter Summary ---
Demographics Address [address] [place] [address] Work Phone Mobile Phone Preferred Language es Marital Status Single Latter-Day Affiliation Unknown Race Other Race Ethnic Group Unknown Author Organization [employer] Address [address] [place] [address] Care Team Providers Care Deskidding Machine Operator Name Role Phone Kemi Hayden MD Primary Care Provider [phone] Reason for Visit * Reason Onset Date Comments Nurse Triage 04/11/2025 Encounter Details Date Type Department Care Team (Late st Contact Info) Description 04/11/2025 Telephone [facility] [address] [place], [place] [phone] Kemi Hayden MD [address] [place], [place] [phone] Nurse Triage Social History Tobacco Use Types [...] pt to triage, spoke to pt. through [employer] Or Choreographer. pt states several weeks duration of intermittent [...] accepted this outcome. Contact pt Mom at [phone] Pt [phone] documented in this encounter Plan of Treatment Upcoming Encounters Date Type Department Care Team (Late st Contact Info) Description 04/20/2025 3:00 PM EDT Clinical Support [address] [address] 04/25/2025 2:00 PM EDT Office Visit [address] [address] Kemi Hayden MD [address] [place] [phone] documented as of this encounter Visit Diagnoses Not on filedocumented in this encounter Care Teams Deskidding Machine Operator Relationship Specialty Start Date End Date Kemi Hayden MD [address] [place] [phone] PCP - General Family Medicine 05/21/22 documented as of this encounter
--- OUTSIDE RECORDS SUMMARY | 2025-04-14 09:16 | XMS_ITS | Encounter Summary ---
Author Organization [facility] [employer] [facility] Address [address] [place] [address] Care Team Providers Care Golf Technician Name Role Phone Kemi Hayden MD Primary Care Provider [phone] Encounter Details Date Type Department Care Team (Latest Contact Info) Description 08/29/2022 Abstract [facility] CONVERSIONS Dental, Provider, DDS Social History [...] Description 04/20/2025 3:00 PM EDT Clinical Support [facility] [address] [place] [phone] 04/25/2025 2:00 PM EDT Office Visit [facility] [address] [place] [phone] Kemi Hayden MD [address] [place] [phone] documented as of this encounter Visit Diagnoses Not on filedocumented in this encounter Care Teams Golf Technician Relationship Specialty Start Date End Date Kemi Hayden MD [address] [place] [phone] PCP - General Family Medicine 05/21/22 documented as of this encounter
--- OUTSIDE RECORDS SUMMARY | 2025-04-14 09:16 | XMS_ITS | Encounter Summary ---
Author Organization [employer] Address [address] [place] [address] Care Team Providers Care Inspector Salvage Name Role Phone Kemi Hayden MD Primary Care Provider [phone] Encounter Details Date Type Department Care Team [...] Description 04/20/2025 3:00 PM EDT Clinical Support [facility] [address] [place] [phone] 04/25/2025 2:00 PM EDT Office Visit [facility] [address] [place] [phone] Kemi Hayden MD [address] [place] [address] documented as of this encounter Visit Diagnoses Not on filedocumented in this encounter Additional Health Concerns Assessment Noted Time PHQ-9 Depression Total Score: 0 04/13/20 25 11:15 AM EDT documented as of this encounter Care Teams Inspector Salvage Relationship Specialty Start Date End Date Kemi Hayden MD [address] [place] [address] PCP - General Family Medicine 05/21/22 documented as of this encounter
[2025-04-14 10:07] LABS: Hematocrit 46.1 % (42.0-52.0); Hemoglobin 16.3 g/dl (14.0-18.0); Mean Corpuscular HGB Conc 35.4 g/dl (31.0-36.0); Mean Corpuscular Hemoglobin 29.6 pg (27.0-33.0); Mean Corpuscular Volume 83.7 fL (80.0-98.0); Mean Platelet Volume 11.2 fL (9.4-12.4); Platelet Count 307 X10*3/uL (160-400); Red Blood Count 5.51 X10*6/uL (4.60-5.80); White Blood Count 5.1 X10*3/uL (4.8-10.8)
[2025-04-14 11:04] LABS: Estimated Average Glucose 338 mg/dL; Hemoglobin A1c % 13.4 % (<6.0)
[2025-04-14 11:37] LABS: Microalbum/Creatinine Ratio Ur 52.5 ug/mg cr (<30)
[2025-04-14 12:11] LABS: TSH reflex Free T4 0.75 uIU/mL (0.32-4.0)
[2025-04-14 12:14] LABS: Alanine Aminotransferase 21 U/L (0-40); Albumin Level 4.7 g/dL (3.5-5.0); Alkaline Phosphatase 97 U/L (39-117); Anion Gap 12 (12-20); Aspartate Amino Transferase 17 U/L (5-37); Bilirubin Total 1.3 mg/dL (0.0-1.0); Blood Urea Nitrogen 20 mg/dL (9-16); Calcium 9.9 mg/dL (8.4-10.2); Carbon Dioxide 30 mmol/L (22-29); Chloride 104 mmol/L (96-108); Cholesterol 217 mg/dL (<200); Estimated Glomerular Filt Rate > 60; Glucose Random 185 mg/dL (60-115); HDL Cholesterol 43 mg/dL (>40); LDL Cholesterol Calculated 149 mg/dL (<100); Potassium 3.3 mmol/L (3.3-5.1); Sodium 143 mmol/L (135-145); Total Protein 7.3 g/dL (6.5-8.0); Triglycerides 127 mg/dL (<150)
[2025-04-14 12:51] LABS: Insulin 22 uU/mL (2-29)
[2025-04-18 19:33] LABS: Glutamic acid decarboxylase Ab <5 IU/mL (<5)
[2025-04-22 18:34] LABS: ZNT8 Antibodies <10 U/mL (<15)
[2025-04-23 01:54] LABS: Insulinoma associated 2 aatb <5.4 U/mL (<5.4)
== END 2025-04-14 09:02 | disposition home or self-care (01) ==
LOC: HO.LAB 09:01
PROVIDERS: PCP Student in an Organized Health Care Education/Training Program; Visit Provider Student in an Organized Health Care Education/Training Program
DX: E11.9 Type 2 diabetes mellitus without complications (principal)
CPT/HCPCS: 36415; 80053; 80061; 82043; 82570; 83036; 83525; 84443; 85027; 86341

== ENCOUNTER 2025-04-25 14:57 | Outpatient (REF) | payer MEDICAID, SELFPAY ==
[2025-04-26 03:04] LABS: C Peptide 1.48 ng/mL (0.80-3.85)
[2025-04-26 08:13] LABS: HIV AB/AG Nonreactive (Nonreactive); HIV Num 1 0.06 S/CO (0.00-0.99); ~HepC Num1 0.07 S/CO (0.00-0.79); ~Hepatitis C Antibody Nonreactive (Nonreactive)
== END 2025-04-25 14:58 | disposition home or self-care (01) ==
LOC: HO.HHCL 14:57
PROVIDERS: Visit Provider General Practice
DX: E11.9 Type 2 diabetes mellitus without complications (principal)
CPT/HCPCS: 36415; 84681; 86803; 87389